=== PATIENT | male | born 1955 | race Caucasian/White ===

== ENCOUNTER 2019-09-13 12:04 | Emergency (ER) | payer MEDICAID ==
[~2019-09-13] VITALS: Ht 165.1 cm; Wt 64.9 kg
[2019-09-13 12:05] VITALS: BP 146/84
--- NOTE | 2019-09-13 12:05 | NUR ---
Pt left in COVID tent outside for MSE. Pt is stable and daughter along with patient.
--- NOTE | 2019-09-13 12:15 | NUR ---
64/M presents to ED with complaints of body aches, fever, generalized weakness, nausea x 3 days. Patient reports his was admitted to hospital yesterday for similar symptoms and COVID results are pending at this time. Patient denies recent travel. Denies SOB or cough. Patient is stable to wait outside in tent for screening. Pt with daughter. ROBIN.
--- NOTE | 2019-09-13 12:42 | NUR ---
COVID SWAB DONE.
[2019-09-13 13:08] VITALS: BP 146/84
--- NOTE | 2019-09-13 13:08 | NUR ---
Patient discharged with v/s stable. Written and verbal after care instructions given and explained. Patient alert, oriented and verbalized understanding of instructions. Ambulatory with steady gait. All questions addressed prior to discharge. ID band removed. Patient advised to follow up with PMD. Rx of IBUPROFEN, ACETAMINOPHEN & ZOFRAN given. Patient educated on indication of medication including possible reaction and side effects. Opportunity to ask questions provided and answered.
--- NOTE | 2019-09-15 01:04 | NUR ---
POSITIVE COVID RESULTS RECEIVED FROM LAB. REQUESTED HARD COPY TO BE TAKEN TO LAB. COPY WILL BE PLACED IN INFECTION CONTROL'S MAILBOX.
== END 2019-09-13 13:08 | disposition home or self-care (01) ==
LOC: MED 12:04
DX: U07.1 COVID-19 (principal); E11.9 Type 2 diabetes mellitus without complications; I10 Essential (primary) hypertension; E78.00 Pure hypercholesterolemia, unspecified
CPT/HCPCS: 99283; U0003

== ENCOUNTER 2019-09-21 14:37 | Emergency (ER) | payer MEDICAID ==
[~2019-09-21] VITALS: Ht 165.1 cm; Wt 65.8 kg
[2019-09-21 15:04] VITALS: BP 108/49
--- NOTE | 2019-09-21 15:28 | NUR ---
NOTIFIED DR. JAY OF [facility]--TOO HIGH TO READ. ALSO NOTIFIED INSTRUCTIONAL SUPPORT TECHNICIAN CAROL--AWARE PT NEEDS BED
[2019-09-21] MEDS ORDERED: NACL 0.9% 1,000 ML IV ONE ×2 (15:55→18:20)
[2019-09-21 16:20] LABS: BASOPHILS % (AUTO) 0.3 % (0.0-2.0); EOSINOPHILS # (AUTO) 0.1 K/uL (0-0.4); HEMATOCRIT 25.4 % (36-52); HEMOGLOBIN 8.6 g/dL (12.0-18.0); LYMPHOCYTES # (AUTO) 0.6 K/uL (2.0-11.5); LYMPHOCYTES % (AUTO) 6.5 % (20.5-51.1); MEAN CORPUSCULAR HEMOGLOBIN 27 pg (27-31); MEAN CORPUSCULAR HGB CONC 34 g/dL (33-37); MEAN CORPUSCULAR VOLUME 79.5 fL (80-94); MONOCYTES # (AUTO) 0.8 K/uL (0.8-1.0); MONOCYTES % (AUTO) 8.6 % (1.7-9.3); NEUTROPHILS % (AUTO) 83.6 % (42.2-75.2); PLATELET COUNT (AUTO) 392 K/uL (140-450); RED BLOOD CELL COUNT(AUTO) 3.19 MIL/uL (4.20-6.10); RED CELL DISTRIBUTION WIDTH 13.2 % (11.6-13.7); WHITE BLOOD COUNT (AUTO) 9.6 K/uL (4.8-10.8)
[2019-09-21 16:42] LABS: ALBUMIN 2.6 g/dL (3.4-5.0); ANION GAP 18.9 (8-16); CARBON DIOXIDE 21.3 mmol/L (21-32); CREATININE 3.4 mg/dL (0.6-1.3); POTASSIUM 5.2 mmol/L (3.5-5.1); TOTAL BILIRUBIN 0.5 mg/dL (0.0-1.0)
--- NOTE | 2019-09-21 16:46 | NUR ---
PT REMAINS AOX4, NAD, SCROLLING THRU CELLPHONE AT THIS TIME
--- NOTE | 2019-09-21 17:00 | NUR ---
Patient transferred to bed 10 for further care. RN evaluating patient at bedside.
[2019-09-21] MEDS ORDERED: LISI40TA12 PO (17:11)
[2019-09-21] MEDS ORDERED: METO25TA PO (17:11)
[2019-09-21] MEDS ORDERED: SIMV40TA1 PO (17:11)
[2019-09-21] MEDS ORDERED: LISI10TA11 PO (17:11)
[2019-09-21] MEDS ORDERED: INSU100S22 SUBQ (17:11)
[2019-09-21] MEDS ORDERED: HUM SUBQ (17:12)
--- NOTE | 2019-09-21 17:23 | NUR ---
64 Y/O MALE PRESENTS TO ER WITH GEN WEAKNESS, PROD COUGH, NAUSEA AND FATIGUE X3 DAYS. PT STATES BILAT LE ARE GIVING HIM 5/10 DULL PAIN. PT STATES HE IS FEELING MORE FATIGUE THAN NORMAL. DENIES ANY CP, SOB. PT DOES HAVE PRODUCTIVE COUGH. RESP EVEN AND UNLABORED. LUNG SOUNDS CLEAR IN BILAT LOBES. SKIN COOL DRY. AMBULATORY WITH STEADY GAIT. PMH: DM, HTN NKA
[2019-09-21] MEDS ORDERED: ACETAMINOPHEN EXTRA STRENGTH 500 MG TAB PO SCH (17:24)
[2019-09-21] MEDS ORDERED: INSULIN REGULAR, HUMAN 100 UNIT/ML VIAL SUBQ SCH (17:24)
[2019-09-21] MEDS ORDERED: INSULIN REGULAR, HUMAN 100 UNIT/ML VIAL IVP ONE (18:45)
--- NOTE | 2019-09-21 19:11 | NUR ---
REPORT RECEIVED FROM FAVIAN METCALF FOR CONTINUATION OF CARE.
--- NOTE | 2019-09-21 19:35 | NUR ---
DR. NIEVES MADE AWARE OF PT FBS 364 , PT DR. NIEVES PT IS OK TO DISCHARGE AT THIS TIME.
--- NOTE | 2019-09-21 19:40 | NUR ---
IV removed, catheter intact and site benign. Applied folded 4x4 gauze and tape to stop bleeding.
[2019-09-21 19:45] VITALS: BP 142/62
[2019-09-21 20:25] LABS: APPEARANCE,URINE CLEAR (CLEAR); BILIRUBIN,URINE NEGATIVE (NEGATIVE); BLOOD, URINE NEGATIVE (NEGATIVE); COLOR,URINE YELLOW (YELLOW); LEUKOCYTE ESTERASE ,URINE NEGATIVE (NEGATIVE); NITRITE, URINE NEGATIVE (NEGATIVE); PH,URINE 5.5 (5.0-9.0); UGLUCOSE 3+ (NEGATIVE)
== END 2019-09-21 19:45 | disposition home or self-care (01) ==
LOC: MED 14:37
DX: E11.65 Type 2 diabetes mellitus with hyperglycemia (principal); Z20.828 Contact with and (suspected) exposure to other viral communicable diseases; E11.22 Type 2 diabetes mellitus with diabetic chronic kidney disease; I12.9 Hypertensive chronic kidney disease with stage 1 through stage 4 chronic kidney disease, or unspecified chronic kidney disease; N18.9 Chronic kidney disease, unspecified; E86.0 Dehydration; R53.83 Other fatigue; Z79.4 Long term (current) use of insulin; Z79.899 Other long term (current) drug therapy
CPT/HCPCS: 36415; 71045; 80053; 81003; 83880; 84484; 85025; 93005; 96361; 96372; 96374; 99285; J1815; J7030